=== PATIENT | female | born 1945 | race Caucasian/White ===

== ENCOUNTER 2019-08-14 17:07 | Emergency (ER) | payer OTHER ==
[2019-08-13] MEDS: POTASSIUM CL. PREMIX PERIPHER. 50 ML IV SCH (23:30)
[~2019-08-14] VITALS: Ht 167.6 cm; Wt 1.4 kg
--- NOTE | 2019-08-14 17:21 | NUR ---
Note lamont in EDM - 08/14/19 at 1936 by JESUS PATIENT [id number], FROM HOME, C/O GENERALIZED WEAKNESS x 3 WEEKS. PATIENT A/O X 4. NO CHANGES IN LOC NOTED AT THIS TIME. REPORT GIVEN TO MICHAEL MILLER FOR JC
--- NOTE | 2019-08-14 17:21 | NUR ---
PATIENT [id number], FROM HOME, C/O GENERALIZED WEAKNESS x 3 WEEKS. PATIENT A/O X 4. NO CHANGES IN LOC NOTED AT THIS TIME. CONNECTED TO MONITOR. WILL CONTINUE TO MONITOR ACCORDINGLY
[2019-08-14 18:06] LABS: BASOPHILS # (AUTO) 0.1 /CMM (0.0-0.2); BASOPHILS % (AUTO) 0.6 % (0.0-2.0); EOSINOPHILS % (AUTO) 0.6 % (0.0-6.0); HEMATOCRIT 36 % (33-45); HEMOGLOBIN 11.8 g/dL (11.5-14.8); LYMPHOCYTES # (AUTO) 1.9 /CMM (0.8-4.8); LYMPHOCYTES % (AUTO) 17.1 % (20.0-44.0); MEAN CORPUSCULAR HGB CONC 33 g/dl (31.0-36.0); MEAN CORPUSCULAR VOLUME 83 fL (82-100); MONOCYTES # (AUTO) 0.9 /CMM (0.1-1.30); MONOCYTES % (AUTO) 8.3 % (2.0-12.0); NEUTROPHILS # (AUTO) 8.2 /CMM (1.8-8.9); NEUTROPHILS % (AUTO) 73.4 % (43.0-81.0); PLATELET COUNT (AUTO) 324 /CMM (150-450); WHITE BLOOD COUNT (AUTO) 11.1 K/uL (4.3-11.0)
--- NOTE | 2019-08-14 18:41 | NUR ---
CALLED [facility] TO HAVE IMAGE READ
[2019-08-14 18:53] LABS: ALANINE AMINOTRANSFERASE 25 U/L (12-78); ALBUMIN 3.1 g/dL (3.4-5.0); ALKALINE PHOSPHATASE 54 U/L (46-116); ASPARTATE AMINOTRANSFERASE 27 U/L (15-37); B-TYPE NATRIURETIC PEPTIDE 823 PG/ML (0-125); BILIRUBIN,DIRECT 0.1 mg/dL (0.0-0.2); BILIRUBIN,TOTAL 0.6 mg/dL (0.2-1.0); CALCIUM, SERUM 9.7 mg/dL (8.5-10.1); CARBON DIOXIDE 28 mmol/L (21-32); CHLORIDE 94 mmol/L (98-107); CREATININE 2.3 mg/dL (0.6-1.3); GLUCOSE 108 mg/dL (74-106); SODIUM SERUM 134 mmol/L (136-145); TOTAL PROTEIN, SERUM 7.8 g/dL (6.4-8.2); UREA NITROGEN, BLOOD 69 mg/dL (7-18)
[2019-08-14 18:54] LABS: POTASSIUM 2.2 mmol/L (3.5-5.1)
[2019-08-14] MEDS ORDERED: POTASSIUM CL. PREMIX PERIPHER. 50 ML ONE ×4 (19:16→22:58)
--- NOTE | 2019-08-14 19:25 | NUR ---
CALLED [facility]fen[facility]. TRIMMER MACHINE WAS PAGED.
--- NOTE | 2019-08-14 19:29 | NUR ---
PATIENT RESTING ON BED. NO ACUTE DISTRESS. REPORT GIVEN TO MICHAEL MILLER FOR JC
[2019-08-14] MEDS ORDERED: IV NS 0.9% 500 ML BAG IV ONE (19:30)
[2019-08-14] MEDS: POTASSIUM CL. PREMIX PERIPHER. 50 ML IV SCH ×3 (19:31→22:02)
[2019-08-14 19:42] LABS: APPEARANCE,URINE Cloudy (CLEAR); BILIRUBIN,URINE SMALL (NEGATIVE); BLOOD, URINE Moderate Ery/uL (NEGATIVE); KETONES,URINE Negative (NEGATIVE); LEUKOCYTE ESTERASE ,URINE Moderate (NEGATIVE); NITRITE, URINE Negative (NEGATIVE); PROTEIN,URINE Trace mg/dl (NEGATIVE); UGLUCOSE Negative (NEGATIVE); UROBILINOGEN,URINE 0.2 EU/dL (0.2)
[2019-08-14 19:44] LABS: COLOR,URINE DARK YELLOW (YELLOW)
[2019-08-14 19:48] LABS: BACTERIA,URINE Many /HPF (None Seen); RBC,URINE 51-80 /HPF (0-2); SQUAMOUS EPITHELIAL CELL,UR Many /HPF (None Seen); URINE AMORPHOUS URATE Moderate /HPF (None Seen); WBC,URINE TOO NUMEROUS TO COUN /HPF (0-3)
[2019-08-14 19:49] LABS: MUCUS,URINE Many /LPF (None Seen)
[2019-08-14] MEDS ORDERED: LEVO100T9 PO (20:04)
--- NOTE | 2019-08-14 20:12 | NUR ---
PT DOES NOT RECALL HER FULL LIST OF HER HOME MEDS W/ THE DOSAGE AT THIS TIME. WILL ENDORSE TO FLOOR NURSE TO F/U
--- NOTE | 2019-08-14 20:30 | NUR ---
bag 2 out of 5 was administered
[2019-08-14] MEDS ORDERED: CEFTRIAXONE 1 G in IV D5W 50 ML IV ONE (21:00)
--- NOTE | 2019-08-14 21:17 | NUR ---
PER DR. SIMON TO GIVEN A TOATAL OF 40MEQ POTASSIUM IV AND 40MEQ KDUR PO XONE NOW AND 40MEQ PO AT 0000
[2019-08-14] MEDS ORDERED: POTASSIUM CHLORIDE 20 MEQ TAB.PRT.SR PO ONE ×3 (21:20→23:59)
--- NOTE | 2019-08-14 23:30 | NUR ---
BAG 4 OUT OF 4 (LAST BAG ) OF KCL ADMINISTERED. END TIME: 0030
--- NOTE | 2019-08-14 23:40 | NUR ---
PT ACCEPTED TO [facility]. RM [address]UL GARCIA. CALL REPORT TO [phone]. AMBULUNZ ETA 45-60 MIN
--- NOTE | 2019-08-15 00:19 | NUR ---
REPORT GIVEN TO RADHA AT [facility].
[2019-08-15 00:20] VITALS: BP 128/51
[2019-08-15] MEDS ORDERED: POTASSIUM CHLORIDE 10 MEQ TABLET.SA ONE (00:44)
--- NOTE | 2019-08-15 00:55 | NUR ---
PT WAS PICKED UP BY [facility] AND TRANSFERRED TO [facility] UNDER ACLS IN STABLE CONDITION.
== END 2019-08-15 00:59 | disposition short-term general hospital (02) ==
LOC: ER 17:28
DX: E87.6 Hypokalemia (principal); N17.9 Acute kidney failure, unspecified; N30.00 Acute cystitis without hematuria; E03.9 Hypothyroidism, unspecified; F32.9 Major depressive disorder, single episode, unspecified; Z88.6 Allergy status to analgesic agent; Z88.5 Allergy status to narcotic agent; Z79.899 Other long term (current) drug therapy
CPT/HCPCS: 36415; 71045; 80048; 80076; 81001; 83735; 83880; 84484; 85025; 87077; 87086; 87186; 93005; 96365; 96366; 96368; 99285; J0696; J3480 ×4; J7060; 81000-TC